=== PATIENT | female | born 1980 | race Caucasian/White ===

== ENCOUNTER 2017-04-15 18:36 | Emergency (ER) | payer OTHER ==
[2017-04-15 18:40] VITALS: BP 117/76; PULSE 76; TEMP 98.6; BMI 26.6
[2017-04-15] MEDS ORDERED: ONDANSETRON *ODT* 4 MG TABLET SL ONE (20:32)
[2017-04-15] MEDS ORDERED: ACETAMINOPHEN 500 MG TABLET (FP) PO ONE (20:32)
--- NOTE | 2017-04-15 20:38 | PDOC ---
History of Present Illness - General Chief Complaint: Cold Symptoms Stated Complaint: COUGHING/ PAIN Time Seen by Provider: 04/15/17 19:48 History Source: Patient, Unavil. due to pt. cond. - History of Present Illness Initial Comments: 04/15/17 20:36 My chief complaint: Body aches, cough, intermittent headaches and sore throat and loss of appetite one episode of vomiting yesterday, nausea History of present illness: Patient is a 36-year-old female with no significant medical history here today complaining of being sick since 04/12/2017 with body aches, chills, decreased appetite and feeling weak, sore throat, and one episode of vomiting yesterday and nausea today. Patient also reports having intermittent headaches. Patient denies any diarrhea. Patient denies any sick contacts or recent travel. Patient denies any chance of being is currently on menstrual cycle and has an IUD. Patient went to see her primary care provider and had a flu test done does not have the results from yesterday and today had blood work done does not know the results. Timing/Duration: intermittent (since 04/12/17) Associated Symptoms: reports: cough (dry ), headaches (intermittent ), nausea/ vomiting (vomited once yesterday, nausea today), other (sore throat ) Past History - Past Medical History Allergies/Adverse Reactions: Allergies Allergy/AdvReac Type Severity Reaction Status Date / Time No Known Allergies Allergy Verified 04/15/17 18:37 Home Medications: Ambulatory Orders Guaifenesin Dm [Mucinex Dm -] 1 tab PO Q12H PRN #10 tab.er.12h 04/15/17 Anemia: No Asthma: No Cancer: No Cardiac Disorders: No CVA: No COPD: No CHF: No Dementia: No Diabetes: No GI Disorders: Yes (ABD. PAIN) Disorders: Yes (pain) HTN: No Hypercholesterolemia: No Liver Disease: No Seizures: No Thyroid Disease: No - Surgical History Abdominal Surgery: No Appendectomy: No Cardiac Surgery: No Cholecystectomy: No Lung Surgery: No Neurologic Surgery: No Orthopedic Surgery: No - Suicide/Smoking/Psychosocial Hx Smoking Status: No Smoking History: Never smoked Have you smoked in the past 12 months: No Number of Cigarettes Smoked Daily: 0 If you are a former smoker, when did you quit?: 15 Hx Alcohol Use: No Drug/Substance Use Hx: No Substance Use Type: None Hx Substance Use Treatment: No Review of Systems - Review of Systems Able to Perform ROS?: Yes Constitutional: Yes: Loss of Appetite HEENTM: Yes: Throat Pain Respiratory: Yes: Cough. No: Shortness of Breath, SOB with Exertion, SOB at Rest, Stridor, Wheezing, Productive cough Cardiac (ROS): No: Symptoms Reported ABD/GI: Yes: Nausea, Vomiting (once yesterday) : No: Symptoms Reported Neurological: Yes: Headache (intermittent ) *Physical Exam - Vital Signs Last Vital Signs Temp Pulse Resp BP Pulse Ox 98.6 F 76 18 117/76 100 04/15/17 18:37 04/15/17 18:37 04/15/17 18:37 04/15/17 18:37 04/15/17 18:37 - Physical Exam General Appearance: Yes: Appropriately Dressed HEENT: positive: TMs Normal, Pharyngeal Erythema. negative: Tonsillar Exudate, Tonsillar Erythema Neck: positive: Lymphadenopathy (L). negative: Lymphadenopathy (R) Respiratory/Chest: positive: Lungs Clear, Normal Breath Sounds. negative: Chest Tender, Respiratory Distress Cardiovascular: positive: Regular Rhythm, Regular Rate, S1, S2 Gastrointestinal/Abdominal: positive: Normal Bowel Sounds, Soft. negative: Tender, Organomegaly, Distended, Guarding, Rebound, Tenderness, Hepatomegaly, Spleenomegaly Integumentary: positive: Normal Color Neurologic: positive: Fully Oriented, Alert, Normal Response, Responsive Medical Decision Making - Medical Decision Making 04/15/17 20:38 Patient is a 36-year-old female with no significant medical history here today complaining of being sick since 04/12/2017 with body aches, chills, decreased appetite and feeling weak, sore throat, cough and one episode of vomiting yesterday and nausea today. Patient also reports having intermittent headaches. Patient denies any diarrhea. Patient denies any sick contacts or recent travel. Patient denies any chance of being is currently on menstrual cycle and has an IUD. Patient went to see her primary care provider and had a flu test done does not have the results from yesterday and today had blood work done does not know the results. r/o strep throat VIRAL SYNDROME Plan: throat C &S rapid negative acetaminophen 1000 mg po now zofran 4 mg sl 04/15/17 21:42 Mucinex DM 1 cap q12 hr prn cough x 5 days *DC/Admit/Observation/Transfer Diagnosis at time of Disposition: Influenza-like illness - Discharge Dispostion Disposition: HOME Condition at time of disposition: Stable - Patient Instructions Additional Instructions: Drink a lot a fluids Rest Follow-up with your primary care doctor tomorrow Return to emergency room if symptoms worsen or new symptoms develop Take ibuprofen or acetaminophen as needed as directed by bacteriologist fishery for headache or fever or pain patient voiced understanding of discharge instructions all questions were answered
[2017-04-15] MEDS ORDERED: ACETAMINOPHEN 500 MG TABLET (FP) ONE (20:40)
[2017-04-15] MEDS ORDERED: ONDANSETRON *ODT* 4 MG TABLET ONE ×2 (20:40→20:42)
== END 2017-04-15 21:48 | disposition home or self-care (01) ==
LOC: JERFT 18:36
DX: J11.1 Influenza due to unidentified influenza virus with other respiratory manifestations (principal)
CPT/HCPCS: 87070; 87430; 99281-25

== ENCOUNTER 2024-04-25 17:47 | Emergency (ER) | payer OTHER ==
[2024-04-25 18:14] VITALS: BP 123/70; PULSE 90; RESP 18; TEMP 98.3; BMI 29.2
[2024-04-25 19:21] LABS: EPI CELLS 6 /uL (0-25.1); HYALINE CASTS 0 /uL (0-3.1); URINE APPEARANCE CLEAR; URINE BACTERIA 23 /uL (0-1359); URINE BILIRUBIN NEGATIVE (NEGATIVE); URINE COLOR YELLOW; URINE GLUCOSE (UA) NEGATIVE (NEGATIVE); URINE KETONE NEGATIVE (NEGATIVE); URINE LEUK ESTERASE NEGATIVE (NEGATIVE); URINE NITRITE NEGATIVE (NEGATIVE); URINE PROTEIN NEGATIVE (NEGATIVE); URINE RBC 54 /uL (0-23.9); URINE UROBILINOGEN 0.2 mg/dL (0.2-1.0); URINE WBC 5 /uL (0-25.8)
[2024-04-25] MEDS ORDERED: ACETAMINOPHEN INJECTION 100 ML ONE (19:43)
[2024-04-25] MEDS: ACETAMINOPHEN 1000 MG/100 ML BAG IVPB ONE (19:54)
[2024-04-25] MEDS: SODIUM CHLORIDE 1,000 ML IV STA (19:54)
[2024-04-25] MEDS: LACTATED RINGERS SOLUTION 1,000 ML/1,000 ML INFUS.BAG IV ONE (19:54)
== END 2024-04-25 21:48 | disposition home or self-care (01) ==
LOC: JER 17:47
PROC: 3E033NZ Introduction of Analgesics, Hypnotics, Sedatives into Peripheral Vein, Percutaneous Approach (ICD-10-PCS; principal; 2024-04-25)
PROC: 3E0337Z Introduction of Electrolytic and Water Balance Substance into Peripheral Vein, Percutaneous Approach (ICD-10-PCS; 2024-04-25)
DX: R19.7 Diarrhea, unspecified (principal); B34.9 Viral infection, unspecified; Z20.822 Contact with and (suspected) exposure to COVID-19
CPT/HCPCS: 0241U-QW; 71046-TC-FY; 81003; 84703; 87077; 87086; 87186; 96361; 96374; 99284-25; J0131

== ENCOUNTER 2025-03-22 15:23 | Emergency (ER) | payer OTHER ==
[2025-03-22 16:08] VITALS: BP 155/86; PULSE 96; RESP 20; TEMP 97.9; BMI 26.6
[2025-03-22] MEDS ORDERED: ACETAMINOPHEN 325 MG TABLET (FP) ONE (16:21)
[2025-03-22] MEDS ORDERED: LIDOCAINE 4% PATCH TP ONE (16:21)
[2025-03-22] MEDS: LIDOCAINE 4% PATCH TP ONE (16:26)
[2025-03-22] MEDS: ACETAMINOPHEN 500 MG TABLET (FP) PO ONE (16:26)
[2025-03-22] MEDS: ACETAMINOPHEN 1000 MG/100 ML BAG IVPB ONE (16:42)
[2025-03-22] MEDS: METHOCARBAMOL 750 MG TABLET PO ONE (16:56)
[2025-03-22] MEDS: SODIUM CHLORIDE 0.9% 500 ML INFUS.BAG IV ONE (16:56)
[2025-03-22 17:00] LABS: EOSINOPHIL % 0.3 % (0.7-5.8); EOSINOPHILS # 0.03 x10^3/uL (0.04-0.36)
[2025-03-22 17:03] LABS: URINE APPEARANCE CLOUDY; URINE BILIRUBIN NEGATIVE (NEGATIVE); URINE COLOR YELLOW; URINE GLUCOSE (UA) NEGATIVE (NEGATIVE); URINE KETONE 1+ (NEGATIVE); URINE LEUK ESTERASE NEGATIVE (NEGATIVE); URINE NITRITE NEGATIVE (NEGATIVE); URINE PROTEIN TRACE (NEGATIVE); URINE UROBILINOGEN 1.0 mg/dL (0.2-1.0)
[2025-03-22 17:05] LABS: MCHC 31.8 g/dl (32.2-35.5)
[2025-03-22 17:06] LABS: HCG,QUALITATIVE URINE Negative
[2025-03-22 17:07] LABS: ABSOLUTE IMMATURE GRANULOCYTES 0.04 x10^3/uL (0.0-0.031); BASOPHILS # 0.07 x10^3/uL (0.01-0.08); IMMATURE PLATELET FRACTION # 18.10 x10^3/uL; MEAN CELL VOLUME 85.0 fl (79.4-94.8); MONOCYTE # 0.30 x10^3/uL (0.24-0.86); MONOCYTE % 3.0 % (4.7-12.5); RDW 13.6 % (12.2-17.1)
[2025-03-22 17:40] LABS: GLUCOSE,RANDOM 105.0 mg/dL (74-106); TOT PROT 8.1 g/dl (6.4-8.2)
[2025-03-22 17:41] LABS: CO2 20.0 mmol/L (21-32)
[2025-03-22 17:43] LABS: ALK PHOS 96.0 U/L (40-150)
[2025-03-22 17:46] LABS: CREATININE 0.9 mg/dL (0.55-1.3); SGOT/AST 33.0 U/L (5-34); SGPT/ALT 28.0 U/L (0-55)
[2025-03-22] MEDS ORDERED: KETOROLAC TROMETHAMINE 15 MG/ML VIAL ONE (18:45)
[2025-03-22] MEDS ORDERED: METHOCARBAMOL 500 MG TABLET ONE (18:45)
[2025-03-22] MEDS: KETOROLAC TROMETHAMINE 15 MG/ML VIAL IVPUSH ONE (19:06)
[2025-03-22] MEDS: METHOCARBAMOL 500 MG TABLET PO ONE (19:06)
[2025-03-22] MEDS ORDERED: LIDOCAINE PATCH REMOVAL MC SCH (22:00)
== END 2025-03-22 20:00 | disposition home or self-care (01) ==
LOC: JER 15:23
PROC: 3E0333Z Introduction of Anti-inflammatory into Peripheral Vein, Percutaneous Approach (ICD-10-PCS; principal; 2025-03-22)
DX: M54.50 Low back pain, unspecified (principal)
CPT/HCPCS: 36415; 72100-TC-FY; 72131-TC; 74176-TC; 80053; 81003; 84703; 85025; 85651; 86140; 87086; 99283-25

== ENCOUNTER 2025-03-23 23:33 | Emergency (ER) | payer OTHER ==
[2025-03-23] MEDS ORDERED: KETOROLAC TROMETHAMINE 30 MG/1 ML VIAL ONE (23:56)
[2025-03-24] MEDS: KETOROLAC TROMETHAMINE 30 MG/1 ML VIAL IM ONE (00:11)
[2025-03-24 00:16] VITALS: BP 110/65; RESP 18; TEMP 98.3; BMI 27.4
[2025-03-24] MEDS ORDERED: DEXAMETHASONE SOD PHOSPHATE 10 MG/1 ML VIAL ONE (01:47)
[2025-03-24] MEDS ORDERED: LIDOCAINE 4% PATCH TP ONE (01:47)
[2025-03-24] MEDS: DEXAMETHASONE SOD PHOSPHATE 10 MG/1 ML VIAL IM ONE (01:50)
[2025-03-24] MEDS: LIDOCAINE 4% PATCH TP ONE (01:51)
[2025-03-24 04:57] VITALS: PULSE 87
[2025-03-24] MEDS: BACITRACIN ZINC 15 GM TUBE TOPICAL OINTMENT TP ONE (04:58)
[2025-03-24] MEDS ORDERED: LIDOCAINE PATCH REMOVAL MC SCH (22:00)
== END 2025-03-24 05:00 | disposition home or self-care (01) ==
LOC: JER 23:33
PROC: 3E0233Z Introduction of Anti-inflammatory into Muscle, Percutaneous Approach (ICD-10-PCS; principal; 2025-03-23)
PROC: 3E023GC Introduction of Other Therapeutic Substance into Muscle, Percutaneous Approach (ICD-10-PCS; 2025-03-24)
DX: M25.552 Pain in left hip (principal); M54.50 Low back pain, unspecified
CPT/HCPCS: 76830-TC; 99285-25; J1100

== ENCOUNTER 2025-04-26 06:13 | Day surgery (SDC) | payer OTHER ==
[2025-04-20 11:26] VITALS: BMI 28.3
[2025-04-26] MEDS ORDERED: ACETAMINOPHEN 500 MG TABLET (FP) PO PRN (08:45)
[2025-04-26 10:17] VITALS: RESP 18
[2025-04-26] MEDS: LIDOCAINE HCL 1% PRESERVATIVE FREE - 30ML VIAL IJ ONE (11:25)
[2025-04-26] MEDS: IOHEXOL (OMNIPAQUE IV) 350 MG/ML - 100 ML BOTTLE IV ONE (11:25)
[2025-04-26 12:50] VITALS: BP 145/85; PULSE 62; TEMP 97.8
== END 2025-04-26 12:08 | disposition home or self-care (01) ==
LOC: JASU-SURG 06:13
PROVIDERS: ATTEND Pain Medicine Pain Medicine
PROC: 3E0R3BZ Introduction of Anesthetic Agent into Spinal Canal, Percutaneous Approach (ICD-10-PCS; 2025-04-26)
PROC: 3E0R33Z Introduction of Anti-inflammatory into Spinal Canal, Percutaneous Approach (ICD-10-PCS; principal; 2025-04-26 11:15)
DX: M54.16 Radiculopathy, lumbar region (principal)
CPT/HCPCS: 76000-TC-FY; 81025